=== PATIENT | male | born 1980 | race Caucasian/White ===

== ENCOUNTER 2017-01-09 15:00 | Emergency (ER) | payer OTHER ==
[~2017-01-09] VITALS: Ht 180.3 cm; Wt 100.0 kg
[2017-01-09 15:02] VITALS: TEMP 36.6; Ht 180.3 cm; Wt 100.0 kg
[2017-01-09] MEDS ORDERED: ONDANSETRON INJ 2 MG/ML 2 ML VIAL IV STA (15:14)
[2017-01-09] MEDS ORDERED: KETOROLAC TROMETHAMINE 30 MG/ML VIAL IV STA (15:14)
[2017-01-09] MEDS ORDERED: HYDROmorphone INJ 1 MG/ML SYR IV STA (15:14)
[2017-01-09 15:24] LABS: BASO % 0.3 %; BASO ABS # 0.06 K/uL (0-0.2); COMPLETE YES; EOS % 0.4 %; IG% 0.3 %; LYMPH % 11.1 %; LYMPH ABS # 2.13 K/uL (1.2-3.4); MEAN CELL VOLUME 88.8 fL (80-100); MEAN CORPUSCULAR HEMOGLOBIN 29.6 pg (25-34); MEAN CORPUSCULAR HGB CONC 33.3 g/dl (32-36); MEAN PLATELET VOLUME 10.2 fL (7.4-10.4); MONO % 6.6 %; NEUT % 81.3 %; PLATELET COUNT 276 K/uL (130-400); RED BLOOD COUNT 5.07 M/uL (4.7-6.1); WHITE BLOOD COUNT 19.25 K/uL (4.8-10.8)
[2017-01-09 15:46] LABS: CALCIUM 9.2 mg/dl (8.5-10.1); CREATININE 1.5 mg/dl (0.60-1.40); POTASSIUM 3.5 mmol/L (3.5-5.1)
[2017-01-09] MEDS ORDERED: HYDROmorphone INJ 0.5 MG/0.5 ML SYR IV STA (16:47)
[2017-01-09 17:12] LABS: URINE APPEARANCE CLEAR (CLEAR); URINE BILIRUBIN NEG (NEG); URINE COLOR DK YELLOW; URINE EPITHELIAL CELL AUTO >30 /lpf (0-5); URINE NITRITE NEG (NEG); URINE PH >= 9.0 (4.5-7.5); URINE SPECIFIC GRAVITY 1.031 (1.000-1.030); UROBILINOGEN NEG (NEG); ZZUR CULT IF INDIC CLEAN CATCH NO
[2017-01-09 17:17] LABS: MANUAL MICROSCOPIC REQUIRED? NO; REVIEW REQ? YES
[2017-01-09 17:18] LABS: SULFASALICYLIC ACID POS (NEG)
--- NOTE | 2017-01-09 19:00 | DIAGNOSTIC IMAGING REPORT ---
ABDOMEN AND PELVIS CT WITHOUT CONTRAST CT DOSE: 349.40 mGy.cm HISTORY: Left flank pain. TECHNIQUE: Multiaxial CT images of the abdomen and pelvis were performed without contrast. COMPARISON STUDY: None. FINDINGS: The lung bases are clear. No fractures within the visualized osseous structures. The unenhanced liver, spleen, adrenal glands, pancreas, and gallbladder are unremarkable. No retroperitoneal lymphadenopathy. Normal bladder. No bowel wall thickening or obstruction. Normal appendix. There are few punctate bilateral renal calculi. Mild left hydronephrosis. There are 2 obstructing stones within the left ureter. There is a 5 mm stone within the distal left ureter at the level of the iliac vessels on image 341. There is also a 3 mm stone within the distal left ureter on image 383 proximal to the left ureterovesical junction. IMPRESSION: 1. There are 2 obstructing stones within the distal left ureter as described above resulting in mild left hydronephrosis. 2. Bilateral nephrolithiasis. Electronically signed by: Luis Silva M.D. 01/09/2017 6:59 PM Dictated Date/Time: 01/09/2017 6:52 PM
[2017-01-09] MEDS ORDERED: TAMS0.4C38 PO (19:25)
[2017-01-09] MEDS ORDERED: OXYC1TAB3 PO (19:25)
[2017-01-09] MEDS ORDERED: ONDA4TAB46 PO (19:34)
[2017-01-09] MEDS ORDERED: MoRPHine SULFATE 4 MG/ML 1 ML CARP\\VIAL IV STA (19:34)
[2017-01-09] MEDS ORDERED: OXYCODONE IR HOME PACK PO ONE (19:45)
[2017-01-09 19:59] VITALS: BP 144/86; PULSE 68; O2SAT 98
--- NOTE | 2017-01-09 21:51 | EMERGENCY ROOM VISIT NOTE ---
History Report prepared by Mary Jo: David Jacobs Under the Supervision of: Dr. Rich Vang D.O. First contact with patient: 15:08 Chief Complaint: FLANK PAIN Stated Complaint: ABD PAIN History of Present Illness The patient is a 36 year old male who presents to the Emergency Room with complaints of constant left flank pain beginning 1 hour ago. Per , the patient's pain began suddenly. The patient states that his pain is moving into his abdomen. He also complains of chills, and vomiting. He states "I am freezing ". Pt denies headache, change in vision, numbness, weakness, fevers, chest pain , shortness of breath, diarrhea, pain with urination, and melena. He has no history of kidney stone. Patient has never had pain like this before in the past. Source of History: patient, spouse/significant other () Onset: 1 hour ago Position: other (left flank) Timing: constant Associated Symptoms: + abdominal pain, + chills, + vomiting, No SOB, No chest pain, No diarrhea, No fevers, No numbness, No urinary symptoms, No weakness Review of Systems See HPI for pertinent positives & negatives. A total of 10 systems reviewed and were otherwise negative. Past Medical & Surgical Medical Problems: (1) Ankle pain (2) Club foot of both lower extremities (3) No Known Active Medical Problems Family History Diabetes mellitus Hypertension Social History Smoking Status: Never Smoker Marital Status: Housing Status: lives with family Occupation Status: employed Current/Historical Medications Scheduled Tamsulosin Hcl (Flomax), 0.4 MG PO DAILY Scheduled PRN Ondansetron Hcl (Zofran), 4 MG PO TID PRN for Nausea Oxycodone Immediate Rel Tab (Roxicodone Ir), 1-2 TAB PO Q4H PRN for Severe Pain Allergies Coded Allergies: No Known Allergies (Unverified , 07/23/15) Physical Exam Vital Signs Date Time Temp Pulse Resp B/P Pulse Ox O2 Delivery O2 Flow Rate FiO2 01/09/17 19:59 68 18 144/86 98 01/09/17 19:02 75 18 149/83 99 Room Air 01/09/17 18:02 76 15 136/78 99 Room Air 01/09/17 17:01 71 17 119/77 100 Room Air 01/09/17 15:02 36.6 90 28 157/99 99 Room Air Physical Exam GENERAL: Laying in bed, intermittent dry heaving, severe distress, bilateral shaking of the legs. EYE EXAM: normal conjunctiva OROPHARYNX: no exudate, no erythema, lips, buccal mucosa, and tongue normal and mucous membranes are moist NECK: supple, no nuchal rigidity, no adenopathy, non-tender LUNGS: Clear to auscultation. Normal chest wall mechanics HEART: no murmurs, S1 normal and S2 normal ABDOMEN: abdomen soft, normo-active bowel sounds, no masses, no rebound or guarding. Reproducible tenderness over the left flank into the left abdomen. BACK: Back is symmetrical on inspection and there is no deformity, no midline tenderness, no CVA tenderness. SKIN: no rashes and no bruising UPPER EXTREMITIES: upper extremities are grossly normal. LOWER EXTREMITIES: No pitting edema. NEURO EXAM: Normal sensorium, cranial nerves II-XII grossly intact, normal speech, no gross weakness of arms, no gross weakness of legs. Medical Decision & Procedures ER Provider Diagnostic Interpretation: CT:Per my review, radiologist interpretation. ABDOMEN AND PELVIS CT WITHOUT CONTRAST FINDINGS: The lung bases are clear. No fractures within the visualized osseous structures. The unenhanced liver, spleen, adrenal glands, pancreas, and gallbladder are unremarkable. No retroperitoneal lymphadenopathy. Normal bladder. No bowel wall thickening or obstruction. Normal appendix. There are few punctate bilateral renal calculi. Mild left hydronephrosis. There are 2 obstructing stones within the left ureter. There is a 5 mm stone within the distal left ureter at the level of the iliac vessels on image 341. There is also a 3 mm stone within the distal left ureter on image 383 proximal to the left ureterovesical junction. IMPRESSION: 1. There are 2 obstructing stones within the distal left ureter as described above resulting in mild left hydronephrosis. 2. Bilateral nephrolithiasis. Electronically signed by: Luis Silva M.D. Laboratory Results 01/09/17 15:10 Red Blood Count 5.07, Mean Corpuscular Volume 88.8, Mean Corpuscular Hemoglobin 29.6, Mean Corpuscular Hemoglobin Concent 33.3, Mean Platelet Volume 10.2, Neutrophils (%) (Auto) 81.3, Lymphocytes (%) (Auto) 11.1, Monocytes (%) (Auto) 6.6, Eosinophils (%) (Auto) 0.4, Basophils (%) (Auto) 0.3, Neutrophils # (Auto) 15.65, Lymphocytes # (Auto) 2.13, Monocytes # (Auto) 1.28, Eosinophils # (Auto) 0.07, Basophils # (Auto) 0.06 01/09/17 15:10 Test 01/09/17 15:10 01/09/17 17:00 White Blood Count 19.25 K/uL (4.8-10.8) Red Blood Count 5.07 M/uL (4.7-6.1) Hemoglobin 15.0 g/dL (14.0-18.0) Hematocrit 45.0 % (42-52) Mean Corpuscular Volume 88.8 fL (80-100) Mean Corpuscular Hemoglobin 29.6 pg (25-34) Mean Corpuscular Hemoglobin Concent 33.3 g/dl (32-36) Platelet Count 276 K/uL (130-400) Mean Platelet Volume 10.2 fL (7.4-10.4) Neutrophils (%) (Auto) 81.3 % Lymphocytes (%) (Auto) 11.1 % Monocytes (%) (Auto) 6.6 % Eosinophils (%) (Auto) 0.4 % Basophils (%) (Auto) 0.3 % Neutrophils # (Auto) 15.65 K/uL (1.4-6.5) Lymphocytes # (Auto) 2.13 K/uL (1.2-3.4) Monocytes # (Auto) 1.28 K/uL (0.11-0.59) Eosinophils # (Auto) 0.07 K/uL (0-0.5) Basophils # (Auto) 0.06 K/uL (0-0.2) RDW Standard Deviation 40.7 fL (36.4-46.3) RDW Coefficient of Variation 12.6 % (11.5-14.5) Immature Granulocyte % (Auto) 0.3 % Immature Granulocyte # (Auto) 0.06 K/uL (0.00-0.02) Anion Gap 11.0 mmol/L (3-11) Est Creatinine Clear Calc Drug Dose 82.8 ml/min Estimated GFR () 68.9 Estimated GFR (Non- 59.5 BUN/Creatinine Ratio 8.0 (10-20) Calcium Level 9.2 mg/dl (8.5-10.1) Total Bilirubin 0.6 mg/dl (0.2-1) Direct Bilirubin 0.1 mg/dl (0-0.2) Aspartate Amino Transf (AST/SGOT) 19 U/L (15-37) Alanine Aminotransferase (ALT/SGPT) 34 U/L (12-78) Alkaline Phosphatase 88 U/L (45-117) Total Protein 8.1 gm/dl (6.4-8.2) Albumin 4.3 gm/dl (3.4-5.0) Lipase 103 U/L (73-393) Urine Color DK YELLOW Urine Appearance CLEAR (CLEAR) Urine pH >= 9.0 (4.5-7.5) Urine Specific [place] 1.031 (1.000-1.030) Urine Protein 2+ (NEG) Urine Glucose (UA) NEG (NEG) Urine Ketones 1+ (NEG) Urine Occult Blood NEG (NEG) Urine Nitrite NEG (NEG) Urine Bilirubin NEG (NEG) Urine Urobilinogen NEG (NEG) Urine Leukocyte Esterase NEG (NEG) Urine WBC (Auto) 1-5 /hpf (0-5) Urine RBC (Auto) 0-4 /hpf (0-4) Urine Hyaline Casts (Auto) /lpf (0-5) Urine Epithelial Cells (Auto) >30 /lpf (0-5) Urine Bacteria (Auto) NEG (NEG) Urine Renal Epithelial Cells /lpf (0-5) Urine Pathogenic Casts /lpf (0) Urine Yeast (Auto) (NONE PRSENT) Laboratory results per my review. Medications Administered Medications (Trade) Dose Ordered Sig/Tiana Route Start Time Stop Time Status Last Admin Dose Admin Hydromorphone HCl (Dilaudid Inj) 1 mg NOW STAT IV 01/09/17 15:14 01/09/17 15:15 DC 01/09/17 15:24 10 MG Ondansetron HCl (Zofran Inj) 4 mg NOW STAT IV 01/09/17 15:14 01/09/17 15:15 DC 01/09/17 15:24 4 MG Ketorolac Tromethamine (Toradol Inj) 30 mg NOW STAT IV 01/09/17 15:14 01/09/17 15:15 DC 01/09/17 15:25 30 MG Hydromorphone HCl (Dilaudid Inj) 0.5 mg NOW STAT IV 01/09/17 16:47 01/09/17 16:48 DC 01/09/17 16:58 0.5 MG Morphine Sulfate (MoRPHine SULFATE INJ) 4 mg NOW STAT IV 01/09/17 19:34 01/09/17 19:35 DC 01/09/17 19:34 4 MG Oxycodone HCl (Roxicodone Immediate Rel 5MG Home Pack) 1 homepack UD ONCE PO 01/09/17 19:45 01/09/17 19:46 DC 01/09/17 19:44 1 HOMEPACK ED Course ED COURSE: Vital signs were reviewed and showed tachypneic The patients medical record was reviewed The above diagnostic studies were performed and reviewed. ED treatments and interventions as stated above. 1509: The patient was evaluated in room C10. A complete history and physical examination was performed. 1514: Ordered Toradol Inj 30 mg IV, Dilaudid Inj 1 mg IV. 1645: I reassessed the patient. He is still in pain. He gave a urine sample. Ordered Dilaudid Inj 0.5 mg IV. 1933: Ordered Morphine Sulfate 4 mg IV. 1944: Ordered Roxicodone Immediate Rel 5 mg home pack PO. 1950: Upon reevaluation, the patient is resting comfortably. I discussed my findings with the patient and he understands and agrees with the treatment plan. Based on the patients age, coexisting illnesses, exam and lab findings the decision to treat as an outpatient was made. The patient remained stable while under my care. The patient appeared well at the time of discharge. Medical Decision Differential diagnoses includes but is not limited to gastritis, peptic ulcer disease, GERD, gallbladder disease, pancreatitis, small bowel obstruction, acute coronary syndrome, pericarditis, ischemic bowel, irritable bowel disease, irritable bowel syndrome, appendicitis, diverticulitis, malignancy, hernia, urinary tract infection, torsion, perforation, trauma, infectious. Patient is a 36-year-old male who presents the ER for severe left flank pain started one hour prior to arrival so she with nausea and vomiting. He has never had this before. On exam patient is in significant distress unable to give comfortable crying. Labs show a leukocytosis of 19,000 which I feels likely stress reactive associated with BMP which is unremarkable along with LFTs , bilirubin and lipase. UA shows no signs of infection. CT noncontrast shows 2 obstructing stones within the distal left ureter one of which is 5 mm and the other is 3 mm at the UVJ. Patient was given 2 rounds soft WITH resolution of his pain. He is given a bolus normal saline and Toradol. He was significant improved. Patient was updated at bedside on 2 separate occasions and discharged with OxyIR/Flomax and instructed to follow up with urology. Discussed with Pt concerning signs and symptoms to watch out for. Pt was instructed to follow up with their PCP and discussed with the patient their option to return to the ED at anytime for persistent or worsening symptoms. The appropriate anticipatory guidance and out-patient management, including indications for return to the emergency department, were explained at length to the patient and understood. Impression Primary Impression: Renal colic on left side Scribe Attestation The scribe's documentation has been prepared under my direction and personally reviewed by me in its entirety. I confirm that the note above accurately reflects all work, treatment, procedures, and medical decision making performed by me. Departure Information Dispostion Home / Self-Care Prescriptions Ondansetron Hcl (ZOFRAN) 4 Mg Tab 4 MG PO TID Y for Nausea, #20 TAB Prov: Rich Vang, DO 01/09/17 Tamsulosin Hcl (FLOMAX) 0.4 Mg Cap 0.4 MG PO DAILY, #10 CAP Prov: Rich Vang, DO 01/09/17 Oxycodone Immediate Rel Tab (ROXICODONE IR) 5 Mg Tab 1-2 TAB PO Q4H Y for Severe Pain, #24 TAB Prov: Rich Vang, DO 01/09/17 Referrals No Doctor, Assigned (PCP) Forms HOME CARE DOCUMENTATION FORM, IMPORTANT VISIT INFORMATION Patient Instructions ED Stone Renal W Colic, [facility] Additional Instructions Please follow up with your primary care doctor with in the next 24 hours. Any worsening of your symptoms, please return to the ED immediately. This fevers greater than 100.4, persistent nausea vomiting, worsening pain, passing out, or any other concerning signs or symptoms from your standpoint. Please follow up with urology within 1 week. You were given medications during this visit that will inhibit your ability to drive, operate machinery and work. Please do NOT drive, operate machinery or work for the next 12hrs. You were also given a prescription for a narcotic. While taking this medication you should also not drive, operate machinery and or work.
== END 2017-01-09 20:01 | disposition home or self-care (01) ==
LOC: C.EDB 15:01 → C.EDC 20:01
DX: N23 Unspecified renal colic (principal); Z83.3 Family history of diabetes mellitus; Z82.49 Family history of ischemic heart disease and other diseases of the circulatory system

== ENCOUNTER 2017-01-13 13:21 | Inpatient (IN) | payer OTHER ==
[~2017-01-13] VITALS: Ht 177.8 cm; Wt 88.9 kg
[~2017-01-13 13:21] MED LIST: ONDA4TAB46 PO; OXYC1TAB3 PO; TAMS0.4C38 PO
[2017-01-13] MEDS ORDERED: SODIUM CHLORIDE 0.9% 1000ML 1,000 ML IV STA (13:53)
[2017-01-13] MEDS ORDERED: KETOROLAC TROMETHAMINE 30 MG/ML VIAL IV STA (13:53)
--- NOTE | 2017-01-13 13:58 | EMERGENCY ROOM VISIT NOTE ---
History First contact with patient: 13:44 Chief Complaint: KIDNEY STONE Stated Complaint: KIDNEY STONES History of Present Illness The patient is a 36 year old male who presents to the Emergency Room via private vehicle accompanied by female with complaints of "kidney stones". The patient states that Tuesday afternoon, around lunch time he went to use the restroom when he developed left flank pain and collapsed the floor secondary to the pain. He rates the pain is a 6-7/10. He states that he was seen here recently in the emergency department where a CT scan was performed and found to obstructing stones. He states that he has been trying to use the Zofran, Flomax and oxycodone immediate release at home but the pain continues. He denies any prior history of kidney stones prior to the recent diagnosis. He states that he last took the oxycodone immediate release at 4 AM and then 10 AM today. He has been urinating. He denies any chest pain, shortness of breath, fevers, chills, established urologist. Review of Systems A complete 10-point Review of Systems was discussed with the patient, with pertinent positives and negatives listed in the History of Present Illness. All remaining Review of Systems questions can be considered negative unless otherwise specified. Past Medical/Surgical History Medical Problems: (1) Ankle pain (2) Club foot of both lower extremities (3) No Known Active Medical Problems Family History Diabetes mellitus Hypertension Social History Smoking Status: Current Every Day Smoker Marital Status: Housing Status: lives with family Occupation Status: employed Current/Historical Medications No Active Prescriptions or Reported Meds Allergies Coded Allergies: No Known Allergies (Unverified , 07/23/15) Physical Exam Vital Signs Date Time Temp Pulse Resp B/P Pulse Ox O2 Delivery O2 Flow Rate FiO2 01/13/17 15:14 57 18 128/61 99 Room Air 01/13/17 13:30 36.9 75 18 147/93 99 Room Air Physical Exam VITAL SIGNS - Vital signs and nursing notes were reviewed. Patient is afebrile , hypertensive at 147/93, nontoxic tachycardic and is saturating well on room air 99%. GENERAL -36-year-old male appearing his stated age who is in no acute distress. Communicates well with provider and answers questions appropriately. SKIN - Without rashes. No petechial rashes. HEAD - NC/AT. LUNGS - Chest wall symmetric without accessory muscle use, intercostals retractions, or central cyanosis. Normal vesicular breath sounds CTA B/L. No wheezes, rales, or rhonchi appreciated. CARDIAC - RRR with S1/S2. No murmur, rubs, or gallops appreciated. ABDOMEN - Abdominal contour without pulsations or visible masses. BS normoactive all four quadrants. There is generalized abdominal tenderness favoring the left side radiating to the left flank. No palpable masses, hepatosplenomegaly, or ascites noted. Positive CVA tenderness on the left. EXTREMITIES - No clubbing or peripheral cyanosis. No pretibial edema present. + 5/5 strength noted in UE/LE bilaterally. NEUROLOGIC - Cranial nerves II through XII grossly intact. PSYCH - Pt is very pleasant and interacts well with examiner. Medical Decision & Procedures ER Provider Diagnostic Interpretation: RENAL ULTRASOUND HISTORY: Left flank pain. Renal colic, obstructing stones, continued pain COMPARISON: Abdomen and pelvis CT 01/09/2017. FINDINGS: Right kidney: 11.9 cm. No hydronephrosis. Normal corticomedullary differentiation and cortical thickness. Left kidney: 11.5 cm. Mild hydronephrosis, unchanged. Increased cortical echogenicity. Normal cortical thickness. Bladder: Decompressed and not well visualized. The ureteral jets are not identified. IMPRESSION: 1. Mild left hydronephrosis, unchanged. 2. Increased cortical echogenicity within the left kidney. This raises the possibility of superimposed pyelonephritis. Recommend correlation with urinalysis. 3. Normal right kidney. Electronically signed by: Luis Silva M.D. 01/13/2017 2:42 PM Dictated Date/Time: 01/13/2017 2:40 PM Laboratory Results 01/13/17 14:00 Red Blood Count 4.72, Mean Corpuscular Volume 87.5, Mean Corpuscular Hemoglobin 29.2, Mean Corpuscular Hemoglobin Concent 33.4, Mean Platelet Volume 10.3, Neutrophils (%) (Auto) 73.5, Lymphocytes (%) (Auto) 13.3, Monocytes (%) (Auto) 10.7, Eosinophils (%) (Auto) 1.6, Basophils (%) (Auto) 0.6, Neutrophils # (Auto ) 8.48, Lymphocytes # (Auto) 1.53, Monocytes # (Auto) 1.23, Eosinophils # (Auto ) 0.18, Basophils # (Auto) 0.07 01/13/17 14:00 Test 01/13/17 13:45 01/13/17 14:00 Urine Color DK YELLOW Urine Appearance CLEAR (CLEAR) Urine pH 6.0 (4.5-7.5) Urine Specific [place] 1.025 (1.000-1.030) Urine Protein 1+ (NEG) Urine Glucose (UA) NEG (NEG) Urine Ketones 3+ (NEG) Urine Occult Blood 3+ (NEG) Urine Nitrite NEG (NEG) Urine Bilirubin 1+ (NEG) Urine Urobilinogen NEG (NEG) Urine Leukocyte Esterase NEG (NEG) Urine WBC (Auto) 1-5 /hpf (0-5) Urine RBC (Auto) >30 /hpf (0-4) Urine Hyaline Casts (Auto) 1-5 /lpf (0-5) Urine Epithelial Cells (Auto) 10-20 /lpf (0-5) Urine Bacteria (Auto) 1+ (NEG) Urine Mucus PRESENT (NONE PRSENT) Urine Yeast (Auto) (NONE PRSENT) White Blood Count 11.52 K/uL (4.8-10.8) Red Blood Count 4.72 M/uL (4.7-6.1) Hemoglobin 13.8 g/dL (14.0-18.0) Hematocrit 41.3 % (42-52) Mean Corpuscular Volume 87.5 fL (80-100) Mean Corpuscular Hemoglobin 29.2 pg (25-34) Mean Corpuscular Hemoglobin Concent 33.4 g/dl (32-36) Platelet Count 242 K/uL (130-400) Mean Platelet Volume 10.3 fL (7.4-10.4) Neutrophils (%) (Auto) 73.5 % Lymphocytes (%) (Auto) 13.3 % Monocytes (%) (Auto) 10.7 % Eosinophils (%) (Auto) 1.6 % Basophils (%) (Auto) 0.6 % Neutrophils # (Auto) 8.48 K/uL (1.4-6.5) Lymphocytes # (Auto) 1.53 K/uL (1.2-3.4) Monocytes # (Auto) 1.23 K/uL (0.11-0.59) Eosinophils # (Auto) 0.18 K/uL (0-0.5) Basophils # (Auto) 0.07 K/uL (0-0.2) RDW Standard Deviation 39.0 fL (36.4-46.3) RDW Coefficient of Variation 12.1 % (11.5-14.5) Immature Granulocyte % (Auto) 0.3 % Immature Granulocyte # (Auto) 0.03 K/uL (0.00-0.02) Anion Gap 7.0 mmol/L (3-11) Est Creatinine Clear Calc Drug Dose 64.3 ml/min Estimated GFR () 55.3 Estimated GFR (Non- 47.7 BUN/Creatinine Ratio 8.4 (10-20) Calcium Level 9.4 mg/dl (8.5-10.1) Medications Administered Medications (Trade) Dose Ordered Sig/Tiana Route Start Time Stop Time Status Last Admin Dose Admin Sodium Chloride (Nss 1000ml) 1,000 ml @ 999 mls/hr Q1H1M STAT IV 01/13/17 13:53 01/13/17 14:53 DC 01/13/17 14:07 999 MLS/HR Ketorolac Tromethamine (Toradol Inj) 30 mg NOW STAT IV 01/13/17 13:53 01/13/17 13:55 DC 01/13/17 14:15 30 MG Medical Decision Patient was seen and evaluated as above. After obtaining a thorough history and physical examination IV access was initiated and the above workup was performed. Previous visit was thoroughly reviewed. Patient was diagnosed with 2 obstructing renal calculi. Creatinine at that time was 1.2. She presents today trying the outpatient Flomax, OxyIR and Zofran with minimal relief. Pain is been continued. Leukocytosis has decreased to 11.52. Hemoglobin 13.8. PRP with creatinine of 1.8. This is an interval elevation. Urine shows 3+ ketones , 3+ occult blood, greater than 30 red blood cells, 10-20 epithelial cells, 1+ urine bacteria and urine mucus. I do not want to really radiate the individual with a CT scan, therefore ultrasound was pursued. Ultrasound reveals mild hydronephrosis of the left, and concern for potential pyelonephritis. When comparing this to his urine today he now has 3+ occult blood and 1+ bacteria. Urine mucus is also present. At this time I do believe is reasonable to discuss the case with on-call urology. I spoke with Jaycee Loving, at 3:20 PM regarding the patient's urologic case. At this time it appears that the patient may warrant hospital admission for pain control, and potential follow up with urology in the inpatient setting. I do believe this is reasonable as the patient has tried the outpatient route and has not done well with controlling pain. At this time I spoke with my attending as well as the on- call hospitalist regarding the patient's potential stay. Patient verbalizes he would prefer to stay in the hospital versus another outpatient route. He was also identified that the patient would likely not be able to be seen by urology until next week in the outpatient setting. I do believe he is stable at this time for admission for pain control regarding his renal calculi. I spoke with the hospitalist regarding his case, please refer to further documentation regarding his stay. He was hydrated with a liter of normal saline, and provided with 30 mg of Toradol, prior to identifying his interval elevation of creatinine. This provided great pain relief. In evaluation treatment this patient following differential diagnoses were entertained: Pyelonephritis, renal calculi, acute kidney injury, among others. Impression Primary Impression: Renal colic on left side Additional Impression: Anemia Departure Information Dispostion Admitted as an inpatient Condition FAIR Prescriptions No Active Prescriptions or Reported Meds Referrals No Doctor, Assigned (PCP) Patient Instructions [facility] Problem Qualifiers
[2017-01-13 14:17] LABS: BASO % 0.6 %; BASO ABS # 0.07 K/uL (0-0.2); COMPLETE YES; EOS % 1.6 %; HEMATOCRIT 41.3 % (42-52); IG% 0.3 %; LYMPH % 13.3 %; LYMPH ABS # 1.53 K/uL (1.2-3.4); MEAN CELL VOLUME 87.5 fL (80-100); MEAN CORPUSCULAR HEMOGLOBIN 29.2 pg (25-34); MEAN CORPUSCULAR HGB CONC 33.4 g/dl (32-36); MEAN PLATELET VOLUME 10.3 fL (7.4-10.4); MONO % 10.7 %; NEUT % 73.5 %; PLATELET COUNT 242 K/uL (130-400); RED BLOOD COUNT 4.72 M/uL (4.7-6.1); WHITE BLOOD COUNT 11.52 K/uL (4.8-10.8)
[2017-01-13 14:29] LABS: URINE APPEARANCE CLEAR (CLEAR); URINE COLOR DK YELLOW; URINE NITRITE NEG (NEG); URINE SPECIFIC GRAVITY 1.025 (1.000-1.030); UROBILINOGEN NEG (NEG); ZZUR CULT IF INDIC CLEAN CATCH YES
[2017-01-13 14:31] LABS: BUN/CREATININE RATIO 8.4 (10-20); CALCIUM 9.4 mg/dl (8.5-10.1); CREATININE 1.8 mg/dl (0.60-1.40)
[2017-01-13 14:38] LABS: MANUAL MICROSCOPIC REQUIRED? NO; REVIEW REQ? YES; URINE BILIRUBIN 1+ (NEG)
[2017-01-13 14:40] LABS: URINE MUCUS PRESENT (NONE PRSENT)
--- NOTE | 2017-01-13 14:43 | DIAGNOSTIC IMAGING REPORT ---
RENAL ULTRASOUND HISTORY: Left flank pain. Renal colic, obstructing stones, continued pain COMPARISON: Abdomen and pelvis CT 01/09/2017. FINDINGS: Right kidney: 11.9 cm. No hydronephrosis. Normal corticomedullary differentiation and cortical thickness. Left kidney: 11.5 cm. Mild hydronephrosis, unchanged. Increased cortical echogenicity. Normal cortical thickness. Bladder: Decompressed and not well visualized. The ureteral jets are not identified. IMPRESSION: 1. Mild left hydronephrosis, unchanged. 2. Increased cortical echogenicity within the left kidney. This raises the possibility of superimposed pyelonephritis. Recommend correlation with urinalysis. 3. Normal right kidney. Electronically signed by: Luis Silva M.D. 01/13/2017 2:42 PM Dictated Date/Time: 01/13/2017 2:40 PM
[2017-01-13] MEDS ORDERED: MoRPHine SULFATE 2 MG/ML CARP IV PRN (17:15)
[2017-01-13] MEDS ORDERED: ONDANSETRON INJ 2 MG/ML 2 ML VIAL IV PRN (17:15)
[2017-01-13] MEDS ORDERED: MAGNESIUM HYDROXIDE SUSP 30 ML UDC PO PRN (17:15)
[2017-01-13] MEDS ORDERED: ACETAMINOPHEN 325 MG TAB PO PRN (17:15)
--- NOTE | 2017-01-13 17:23 | History and Physical ---
History & Physical Date & Time of Service: January 13, 2017 at 17:14 Chief Complaint: Kidney Stones Primary Care Physician: No Doctor, Assigned History of Present Illness Source: patient, family 36 y/o M c/o L flank/abd pain. Pt states he started having L flank pain only on Tuesday. He was seen in the ED and found to have an obstructing renal stone. He was given flomax and d/c'd to home. Since that time, he has not taken much PO. He was having n/v Tuesday and Tuesday, now mostly just no appetite. He has eaten an apple over the last few days. Pain is now his L flank and moving into the L side of his abd. He has also started having burning with urination. He has not noted blood in his urine. Pt denies fever, SOB, chest pain, c/d, LE pain or swelling. ROS as noted above, otherwise neg. Pt has never had pain like this prior. No hx of renal stones. Past Medical/Surgical History Medical Problems: (1) Ankle pain Status: Resolved (2) Club foot of both lower extremities Status: Resolved Family History Family history was reviewed; no changes noted. Maternal uncle with hx of stones Paternal hx unknown Social History Smoking Status: Current Every Day Smoker (1pack Q2days) Alcohol Use: none Drug Use: none Marital Status: Occupational Status: employed Multi-Drug Resistant Organisms History of MDRO: No Allergies Coded Allergies: No Known Allergies (Unverified , 07/23/15) Home Medications No Active Prescriptions or Reported Meds Physical Exam Vital Signs Date Time Temp Pulse Resp B/P Pulse Ox O2 Delivery O2 Flow Rate FiO2 01/13/17 15:14 57 18 128/61 99 Room Air 01/13/17 13:30 36.9 75 18 147/93 99 Room Air General Appearance: WD/WN, no apparent distress Head: normocephalic, atraumatic Respiratory/Chest: normal breath sounds, no respiratory distress Cardiovascular: regular rate, rhythm, no edema Abdomen/GI: soft, + tenderness (L lateral abd) Back: + left CVA tenderness Extremities/Musculoskelatal: no calf tenderness, no pedal edema Neurologic/Psych: alert, normal mood/affect, oriented x 3 Skin: normal color, warm/dry Diagnostics Laboratory Results Results Past 24 Hours Test 01/13/17 13:45 01/13/17 14:00 Range/Units Urine Color DK YELLOW Urine Appearance CLEAR CLEAR Urine pH 6.0 4.5-7.5 Urine Specific [place] 1.025 1.000-1.030 Urine Protein 1+ NEG Urine Glucose (UA) NEG NEG Urine Ketones 3+ NEG Urine Occult Blood 3+ NEG Urine Nitrite NEG NEG Urine Bilirubin 1+ NEG Urine Urobilinogen NEG NEG Urine Leukocyte Esterase NEG NEG Urine WBC (Auto) 1-5 0-5 /hpf Urine RBC (Auto) >30 0-4 /hpf Urine Hyaline Casts (Auto) 1-5 0-5 /lpf Urine Epithelial Cells (Auto) 10-20 0-5 /lpf Urine Bacteria (Auto) 1+ NEG Urine Mucus PRESENT NONE PRSENT Urine Yeast (Auto) NONE PRSENT White Blood Count 11.52 4.8-10.8 K/uL Red Blood Count 4.72 4.7-6.1 M/uL Hemoglobin 13.8 14.0-18.0 g/dL Hematocrit 41.3 42-52 % Mean Corpuscular Volume 87.5 80-100 fL Mean Corpuscular Hemoglobin 29.2 25-34 pg Mean Corpuscular Hemoglobin Concent 33.4 32-36 g/dl Platelet Count 242 130-400 K/uL Mean Platelet Volume 10.3 7.4-10.4 fL Neutrophils (%) (Auto) 73.5 % Lymphocytes (%) (Auto) 13.3 % Monocytes (%) (Auto) 10.7 % Eosinophils (%) (Auto) 1.6 % Basophils (%) (Auto) 0.6 % Neutrophils # (Auto) 8.48 1.4-6.5 K/uL Lymphocytes # (Auto) 1.53 1.2-3.4 K/uL Monocytes # (Auto) 1.23 0.11-0.59 K/uL Eosinophils # (Auto) 0.18 0-0.5 K/uL Basophils # (Auto) 0.07 0-0.2 K/uL RDW Standard Deviation 39.0 36.4-46.3 fL RDW Coefficient of Variation 12.1 11.5-14.5 % Immature Granulocyte % (Auto) 0.3 % Immature Granulocyte # (Auto) 0.03 0.00-0.02 K/uL Sodium Level 136 136-145 mmol/L Potassium Level 4.0 3.5-5.1 mmol/L Chloride Level 100 98-107 mmol/L Carbon Dioxide Level 29 21-32 mmol/L Anion Gap 7.0 3-11 mmol/L Blood Urea Nitrogen 15 7-18 mg/dl Creatinine 1.80 0.60-1.40 mg/dl Est Creatinine Clear Calc Drug Dose 64.3 ml/min Estimated GFR () 55.3 Estimated GFR (Non- 47.7 BUN/Creatinine Ratio 8.4 10-20 Random Glucose 95 70-99 mg/dl Calcium Level 9.4 8.5-10.1 mg/dl Microbiology Results 01/13/17 Urine Culture, Received Pending Diagnostic Radiology Renal US: 1. Mild left hydronephrosis, unchanged. 2. Increased cortical echogenicity within the left kidney. This raises the possibility of superimposed pyelonephritis. Recommend correlation with urinalysis. 3. Normal right kidney. CT AP done 01/09/17: 1. There are 2 obstructing stones within the distal left ureter as described above resulting in mild left hydronephrosis. 2. Bilateral nephrolithiasis Impression Assessment and Plan 36 y/o who was admitted on 01/13 with L sided renal stones Renal stones: obstructing stones noted on CTAP 01/09 US today does not show stones, possible pyelo UA + for blood, neg for leuk est and nitrites--will hold on abx given UA results unless urine cx is + IVF May need t/c repeat CT AP if no improvement Flomax, pain meds Urology c/s pending Nicotine abuse: Pt declines nicotine patch, ordered PRN Level of Care Med/Surg VTE Prophylaxis VTE Risk Assessment Done? Y/N: Yes Risk Level: Low
[2017-01-13] MEDS ORDERED: NICOTINE 21 MG/24 HR TDSY TD PRN (17:30)
[2017-01-13] MEDS: OXYCODONE/ACETAMINOPHEN 5-325 TAB PO PRN (19:56)
[2017-01-13 20:00] VITALS: BP 138/88; PULSE 61; TEMP 36.9; O2SAT 97; Ht 177.8 cm; Wt 88.9 kg
[2017-01-13] MEDS: SODIUM CHLORIDE 0.9% 1000ML 1,000 ML IV SCH (20:00)
--- NOTE | 2017-01-13 21:36 | DIAGNOSTIC IMAGING REPORT ---
KUB CLINICAL HISTORY: ureteral stone COMPARISON STUDY: CT 01/09/2017 FINDINGS: Probable distal left ureteral calculus at the ureterovesical junction. No additional calcifications are identified. Bowel pattern is nonobstructive. IMPRESSION: Single calcification overlying the distal left ureter proximal to the left ureteral vesicle junction. Electronically signed by: Sandro Kingsley M.D. 01/13/2017 9:35 PM Dictated Date/Time: 01/13/2017 9:34 PM
[2017-01-13] MEDS: TAMSULOSIN HCL 0.4 MG CAP PO SCH (22:05)
[2017-01-13 23:49] VITALS: BP 135/77; PULSE 64; TEMP 36.8; O2SAT 99
[2017-01-14] MEDS: SODIUM CHLORIDE 0.9% 1000ML 1,000 ML IV SCH ×4 (01:12→23:47)
[2017-01-14 07:51] VITALS: BP 126/72; PULSE 67; TEMP 36.7; O2SAT 98
[2017-01-14] MEDS: OXYCODONE/ACETAMINOPHEN 5-325 TAB PO PRN (08:02)
--- NOTE | 2017-01-14 10:08 | Consultant Recommendations ---
Tumbler Plater Recommendations Date of Service January 14, 2017. Tumbler Plater Recommendations Please get KUB xray prior to appt next week.
--- NOTE | 2017-01-14 10:08 | Urology Consultation ---
History General Date of Service: January 14, 2017. Primary Care Physician: No Doctor, Assigned Pt seen a urologist before?: No History of Present Illness 36 year old admitted for left ureteral stone. He had been having intermittent left sided pain since Tuesday. Was seen in [facility] ER on Tuesday. Reviewed chart- CT scan at that time showed 2 obstructing right ureteral stones measuring 5 mm at the iliac vessel and 3mm at the UVJ. Also note punctate bitateral stones. His recent KUB shows 1 UVJ stone- suspect this is the 5 mm stone and the 3 mm stone has passed. Renal u/s showed mild hydro. Pt reports he is unsure of passing any stones. His pain is currently controlled with oral pain meds. Denies nausea or bothersome urinary symptoms. Urine culture is pending. He has been NPO since midnight. White count is only slightly elevated 11.52 Creatinine elevated at 1.8 Afebrile. Slightly elevated BP. Imaging Imaging: CT, KUB, Ultrasound Laboratory Last 24 Hours Test 01/13/17 13:45 01/13/17 14:00 01/14/17 08:46 Urine Color DK YELLOW Urine Appearance CLEAR Urine pH 6.0 Urine Specific [place] 1.025 Urine Protein 1+ Urine Glucose (UA) NEG Urine Ketones 3+ Urine Occult Blood 3+ Urine Nitrite NEG Urine Bilirubin 1+ Urine Urobilinogen NEG Urine Leukocyte Esterase NEG Urine WBC (Auto) 1-5 /hpf Urine RBC (Auto) >30 /hpf Urine Hyaline Casts (Auto) 1-5 /lpf Urine Epithelial Cells (Auto) 10-20 /lpf Urine Bacteria (Auto) 1+ Urine Mucus PRESENT Urine Yeast (Auto) White Blood Count 11.52 K/uL Red Blood Count 4.72 M/uL Hemoglobin 13.8 g/dL Hematocrit 41.3 % Mean Corpuscular Volume 87.5 fL Mean Corpuscular Hemoglobin 29.2 pg Mean Corpuscular Hemoglobin Concent 33.4 g/dl Platelet Count 242 K/uL Mean Platelet Volume 10.3 fL Neutrophils (%) (Auto) 73.5 % Lymphocytes (%) (Auto) 13.3 % Monocytes (%) (Auto) 10.7 % Eosinophils (%) (Auto) 1.6 % Basophils (%) (Auto) 0.6 % Neutrophils # (Auto) 8.48 K/uL Lymphocytes # (Auto) 1.53 K/uL Monocytes # (Auto) 1.23 K/uL Eosinophils # (Auto) 0.18 K/uL Basophils # (Auto) 0.07 K/uL RDW Standard Deviation 39.0 fL RDW Coefficient of Variation 12.1 % Immature Granulocyte % (Auto) 0.3 % Immature Granulocyte # (Auto) 0.03 K/uL Sodium Level 136 mmol/L Potassium Level 4.0 mmol/L Chloride Level 100 mmol/L Carbon Dioxide Level 29 mmol/L Anion Gap 7.0 mmol/L Blood Urea Nitrogen 15 mg/dl Creatinine 1.80 mg/dl Est Creatinine Clear Calc Drug Dose 64.3 ml/min Estimated GFR () 55.3 Estimated GFR (Non- 47.7 BUN/Creatinine Ratio 8.4 Random Glucose 95 mg/dl Calcium Level 9.4 mg/dl Current Inpatient Medications Medications (Trade) Dose Ordered Sig/Tiana Route Start Time Stop Time Status Last Admin Dose Admin Acetaminophen (Tylenol Tab) 650 mg Q4H PRN PO 01/13/17 17:15 02/12/17 17:14 Magnesium Hydroxide (Milk Of Magnesia Susp) 30 ml Q6H PRN PO 01/13/17 17:15 02/12/17 17:14 Ondansetron HCl 4 mg 4 mg Q6H PRN IV 01/13/17 17:15 02/12/17 17:14 Sodium Chloride (Nss 1000ml) 1,000 ml @ 125 mls/hr Q8H IV 01/13/17 17:15 02/12/17 17:14 01/14/17 09:18 125 MLS/HR Morphine Sulfate (MoRPHine SULFATE INJ) 1 mg Q4H PRN IV 01/13/17 17:15 01/27/17 17:14 Oxycodone/ Acetaminophen (Percocet 5-325mg Tab) 1 tab Q4H PRN PO 01/13/17 17:15 01/27/17 17:14 01/14/17 08:02 1 TAB Tamsulosin HCl (Flomax Cap) 0.4 mg HS PO 01/13/17 21:00 02/12/17 20:59 01/13/17 22:05 0.4 MG Nicotine (Nicoderm Cq 21MG Patch) 1 patch QAM PRN TD 01/13/17 17:30 02/12/17 17:29 Labs were reviewed and are within normal limits unless listed below. Labs are available in the chart and at [facility] Problem List Medical Problems: (1) Anemia Status: Acute (2) Renal colic on left side Status: Acute (3) Renal colic on left side Status: Acute Past History other (club foot as child- resolved) Family History Diabetes mellitus Hypertension Social History Hx Tobacco Use In Past Year?: Yes Marital status: Occupation status: employed History of MDRO No Allergies Coded Allergies: No Known Allergies (Unverified , 07/23/15) Medications Home Medications: Home Meds and Scripts Medications Dose Route/Sig Max Daily Dose Days Date Category No Active Prescriptions or Reported Medications Rx Inpatient Medications: Current Inpatient Medications Medications (Trade) Dose Ordered Sig/Tiana Route Start Time Stop Time Status Last Admin Dose Admin Acetaminophen (Tylenol Tab) 650 mg Q4H PRN PO 01/13/17 17:15 02/12/17 17:14 Magnesium Hydroxide (Milk Of Magnesia Susp) 30 ml Q6H PRN PO 01/13/17 17:15 02/12/17 17:14 Ondansetron HCl 4 mg 4 mg Q6H PRN IV 01/13/17 17:15 02/12/17 17:14 Sodium Chloride (Nss 1000ml) 1,000 ml @ 125 mls/hr Q8H IV 01/13/17 17:15 02/12/17 17:14 01/14/17 09:18 125 MLS/HR Morphine Sulfate (MoRPHine SULFATE INJ) 1 mg Q4H PRN IV 01/13/17 17:15 01/27/17 17:14 Oxycodone/ Acetaminophen (Percocet 5-325mg Tab) 1 tab Q4H PRN PO 01/13/17 17:15 01/27/17 17:14 01/14/17 08:02 1 TAB Tamsulosin HCl (Flomax Cap) 0.4 mg HS PO 01/13/17 21:00 02/12/17 20:59 01/13/17 22:05 0.4 MG Nicotine (Nicoderm Cq 21MG Patch) 1 patch QAM PRN TD 01/13/17 17:30 02/12/17 17:29 Review of Systems Review of Systems Constitutional: No chills, No fever Eyes: No blurred vision Neurological: No dizzy, No passing out Endocrine: No excessive thirst Gastrointestinal: + see HPI, No nausea, No vomiting Cardiovascular: No chest pain Respiratory: No shortness of breath, No wheezing Skin: No rash Musculoskeletal: No joint pain Blood / Lymphatic: No bleed easily, No bruise easily Ears / Nose / Throat: No hearing loss Psychologic / Mental: No nervous Male : + see HPI Physical Exam Vital Signs: Vital Signs Past 12 Hours Date Time Temp Pulse Resp B/P Pulse Ox O2 Delivery O2 Flow Rate FiO2 01/14/17 07:51 36.7 67 18 126/72 98 Room Air 01/14/17 00:45 Room Air 01/13/17 23:49 36.8 64 16 135/77 99 Room Air Physical Exam: General Appearance: WD/WN, no apparent distress Eyes: bilateral eyes normal inspection ENT: hearing grossly normal Neck: no JVD Respiratory/Chest: lungs clear, normal breath sounds, no respiratory distress, no accessory muscle use Cardiovascular: regular rate, rhythm Gastrointestinal: Abdomen: normal abdomen Extremities: normal range of motion, non-tender, normal inspection, no pedal edema, no calf tenderness Neurologic/Psychiatric: alert, normal mood/affect, oriented x 3 Skin: normal color, warm/dry, no rash Assessment & Plan Assessment & Plan Imaging: CT, KUB, Ultrasound Left ureteral stone KUB reveals has at least one of the previous obstructing stones seen on CT on Tuesday. His pain is controlled with oral pain medications. Discussed options of MET and push fluids and follow up in office versus stent placement. He wishes to avoid stent placement at this time. 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 Plan to follow up with pt in office early next week with repeat KUB- our office will call to set up appt. If hasn't passed stone will set up for out-pt ESWL. Ok to d/c home from urology standpoint. Thanks for the consult.
[2017-01-14 10:18] LABS: BASO % 0.7 %; BASO ABS # 0.06 K/uL (0-0.2); COMPLETE YES; EOS % 3.1 %; HEMATOCRIT 39.6 % (42-52); IG% 0.2 %; LYMPH % 15.3 %; LYMPH ABS # 1.35 K/uL (1.2-3.4); MEAN CELL VOLUME 88.6 fL (80-100); MEAN CORPUSCULAR HGB CONC 33.8 g/dl (32-36); MEAN PLATELET VOLUME 10.3 fL (7.4-10.4); MONO % 11.8 %; NEUT % 68.9 %; PLATELET COUNT 240 K/uL (130-400); RED BLOOD COUNT 4.47 M/uL (4.7-6.1); WHITE BLOOD COUNT 8.85 K/uL (4.8-10.8)
[2017-01-14 10:25] LABS: PARTIAL THROMBOPLASTIN RATIO 1.1; PROTHROMBIN TIME (PATIENT) 11.1 SECONDS (9.0-12.0)
[2017-01-14 10:48] LABS: BUN/CREATININE RATIO 9.5 (10-20); CALCIUM 8.6 mg/dl (8.5-10.1); CREATININE 1.5 mg/dl (0.60-1.40); POTASSIUM 4.2 mmol/L (3.5-5.1)
--- NOTE | 2017-01-14 13:27 | Hospitalist Progress Note ---
Hospitalist Progress Note Date of Service January 14, 2017. (Debbie Sousa PA-C) Subjective Pt evaluation today including: conversation w/ patient, physical exam, chart review, lab review, review of studies Pain: Moderate left LLQ PO Intake: GOod Voiding: no voiding problems The patient was seen and examined this afternoon. He is doing better than yesterday but still reports moderate pain in the LLQ. He is urinating without difficulty, no hematuria. Pt denies nausea or vomiting and was able to eat about 75% of his lunch. This was the first time he's eaten real food since Tuesday, therefore has not had a bowel movement for past 4 days. He is passing gas. Constitutional: No chills, No fever, No sweats Eyes: No diplopia, No problem reported ENT: No dental problems, No trouble swallowing Respiratory: No cough, No shortness of breath, No wheezing Cardiovascular: No chest pain, No palpitations Abdomen: + pain, No constipation, No diarrhea, No nausea, No vomiting Male : No dysuria, No hematuria Neurologic: No numbness/tingling, No weakness Skin: No itch, No rash (Debbie Sousa PA-C) Objective Vital Signs Date Time Temp Pulse Resp B/P Pulse Ox O2 Delivery O2 Flow Rate FiO2 01/14/17 07:55 Room Air 01/14/17 07:51 36.7 67 18 126/72 98 Room Air 01/14/17 00:45 Room Air 01/13/17 23:49 36.8 64 16 135/77 99 Room Air 01/13/17 20:00 36.9 61 16 138/88 97 Room Air 01/13/17 19:15 62 16 147/68 99 Room Air 01/13/17 17:16 58 18 158/87 98 Room Air 01/13/17 15:14 57 18 128/61 99 Room Air 01/13/17 13:30 36.9 75 18 147/93 99 Room Air (Debbie Sousa PA-C) Physical Exam General Appearance: WD/WN, no apparent distress Eyes: PERRL, EOMI ENT: hearing grossly normal, pharynx normal Neck: supple, thyroid normal, no JVD Respiratory/Chest: chest non-tender, lungs clear, no respiratory distress, no accessory muscle use Cardiovascular: regular rate, rhythm, no JVD, no murmur Abdomen: normal bowel sounds, soft, + tenderness (LLQ, no flank tenderness, no CVA tenderness) Extremities: normal range of motion, non-tender, no pedal edema, no calf tenderness Neurologic/Psychiatric: board finisher II-XII nml as tested, alert, oriented x 3 (Debbie Sousa PA-C) Laboratory Results Last 24 Hours Test 01/13/17 13:45 01/13/17 14:00 01/14/17 09:50 Urine Color DK YELLOW Urine Appearance CLEAR Urine pH 6.0 Urine Specific [place] 1.025 Urine Protein 1+ Urine Glucose (UA) NEG Urine Ketones 3+ Urine Occult Blood 3+ Urine Nitrite NEG Urine Bilirubin 1+ Urine Urobilinogen NEG Urine Leukocyte Esterase NEG Urine WBC (Auto) 1-5 /hpf Urine RBC (Auto) >30 /hpf Urine Hyaline Casts (Auto) 1-5 /lpf Urine Epithelial Cells (Auto) 10-20 /lpf Urine Bacteria (Auto) 1+ Urine Mucus PRESENT Urine Yeast (Auto) White Blood Count 11.52 K/uL 8.85 K/uL Red Blood Count 4.72 M/uL 4.47 M/uL Hemoglobin 13.8 g/dL 13.4 g/dL Hematocrit 41.3 % 39.6 % Mean Corpuscular Volume 87.5 fL 88.6 fL Mean Corpuscular Hemoglobin 29.2 pg 30.0 pg Mean Corpuscular Hemoglobin Concent 33.4 g/dl 33.8 g/dl Platelet Count 242 K/uL 240 K/uL Mean Platelet Volume 10.3 fL 10.3 fL Neutrophils (%) (Auto) 73.5 % 68.9 % Lymphocytes (%) (Auto) 13.3 % 15.3 % Monocytes (%) (Auto) 10.7 % 11.8 % Eosinophils (%) (Auto) 1.6 % 3.1 % Basophils (%) (Auto) 0.6 % 0.7 % Neutrophils # (Auto) 8.48 K/uL 6.11 K/uL Lymphocytes # (Auto) 1.53 K/uL 1.35 K/uL Monocytes # (Auto) 1.23 K/uL 1.04 K/uL Eosinophils # (Auto) 0.18 K/uL 0.27 K/uL Basophils # (Auto) 0.07 K/uL 0.06 K/uL RDW Standard Deviation 39.0 fL 40.0 fL RDW Coefficient of Variation 12.1 % 12.4 % Immature Granulocyte % (Auto) 0.3 % 0.2 % Immature Granulocyte # (Auto) 0.03 K/uL 0.02 K/uL Sodium Level 136 mmol/L 141 mmol/L Potassium Level 4.0 mmol/L 4.2 mmol/L Chloride Level 100 mmol/L 107 mmol/L Carbon Dioxide Level 29 mmol/L 25 mmol/L Anion Gap 7.0 mmol/L 9.0 mmol/L Blood Urea Nitrogen 15 mg/dl 14 mg/dl Creatinine 1.80 mg/dl 1.50 mg/dl Est Creatinine Clear Calc Drug Dose 64.3 ml/min 77.2 ml/min Estimated GFR () 55.3 68.9 Estimated GFR (Non- 47.7 59.5 BUN/Creatinine Ratio 8.4 9.5 Random Glucose 95 mg/dl 90 mg/dl Calcium Level 9.4 mg/dl 8.6 mg/dl Prothrombin Time 11.1 SECONDS Prothromb Time International Ratio 1.0 Activated Partial Thromboplast Time 28.5 SECONDS Partial Thromboplastin Ratio 1.1 (Debbie Sousa, KATIE) Assessment and Plan 36 y/o who was admitted on 01/13 with 1 UVJ stone- suspect this is the 5 mm stone and the 3 mm stone has passed. Renal u/s showed mild hydronephrosis Left Nephrolithiasis - KUB reviewed showing 1 UVJ stone - Urology consulted- plan to use fluid and follow up in the office within 1 weeks vs stent placement. 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 improved to 1.5, was 1.8 upon admission, continue to encourage oral hydration - Analgesia with toradol 15 mg Q6H prn, morphine 1 mg Q4H prn, and percocet 5/ 325 Q4H prn Chronic tobacco use - Cessation counseling provided at bedside. He is adimant about trying to quit. Typically smokes 1/2-3/4 pack per day. - Pt has not needed nicotine patch in hospital, but would like a prescription at time of discharge. DVT ppx: Teds, scds, OOB ad sandra CODE STATUS: FULL CODE Disposition: from home, likely discharge within 24 hours. (Debbie Sousa, KAITE) Attending Attestation: Pt seen/examined, chart reviewed, care plan d/w MAYURI Sousa. I agree w/ the gonzalez components of her documentation. Pt still w/ pain, but improved. No nausea/emesis. gen - nad heart - RRR, s1, s2, 2/6 NNEKA LUSB abd - soft, ND, BS+, no HSM, tender left flank A/P: 1. obstructing renal stones, left, at the UVJ - cont flomax, fluids, pain control, conservative Rx. Overall he is improved today from a pain standpoint. 2. acute kidney injury - 2nd to #1 - improved, Cr now 1.5; repeat BMP am. 3. no evidence of complicating UTI. reassess in AM Joseph STEPHENSON MD (Ruel Stephenson MD)
[2017-01-14] MEDS ORDERED: KETOROLAC TROMETHAMINE 15 MG/ML VIAL IV PRN (13:45)
[2017-01-14 15:21] VITALS: BP 132/69; PULSE 62; TEMP 37.3; O2SAT 98
[2017-01-14] MEDS: TAMSULOSIN HCL 0.4 MG CAP PO SCH (21:27)
[2017-01-14 23:25] VITALS: BP 130/65; PULSE 67; TEMP 37; O2SAT 97
[2017-01-15 07:22] LABS: BUN/CREATININE RATIO 8.6 (10-20); CALCIUM 8.8 mg/dl (8.5-10.1); CREATININE 1.4 mg/dl (0.60-1.40); POTASSIUM 4.1 mmol/L (3.5-5.1)
[2017-01-15 08:42] VITALS: BP 149/79; PULSE 67; TEMP 37; O2SAT 97
[2017-01-15] MEDS ORDERED: OXYC-57 PO (08:46)
[2017-01-15] MEDS ORDERED: Nicotine TD (08:46)
[2017-01-15] MEDS ORDERED: FLM4 PO (08:46)
--- NOTE | 2017-01-15 08:56 | Progress Note ---
Subjective Date of Service: January 15, 2017. Subjective Pt evaluation today including: conversation w/ patient, physical exam, chart review, review of inpatient medication list Pain: Denies PO Intake: Citl[place] reg diet Voiding: no voiding problems 36 yo male with L distal ureteral stones. He denies stone passage but has had no recent pain, citlalli reg diet, no f/c/n/v. He is ready for DC home. Past notes reviewed. Problem List Medical Problems: (1) Anemia Status: Acute (2) Renal colic on left side Status: Acute (3) Renal colic on left side Status: Acute Review of Systems Constitutional: No chills, No fever Eyes: No worsening of vision ENT: No hearing loss Respiratory: No shortness of breath, No sputum, No wheezing Cardiac: No chest pain Abdomen: No nausea, No vomiting Male : No incontinence Neurologic: No memory loss, No paralysis Psychiatric: No depression symptoms Endo: No excessive thirst Skin: No color change, No new/changing skin lesions Objective Vital Signs Date Time Temp Pulse Resp B/P Pulse Ox O2 Delivery O2 Flow Rate FiO2 01/15/17 08:42 37.0 67 18 149/79 97 Room Air 01/14/17 23:45 Room Air 01/14/17 23:25 37.0 67 18 130/65 97 Room Air 01/14/17 15:45 Room Air 01/14/17 15:21 37.3 62 18 132/69 98 Room Air Physical Exam General Appearance: WD/WN, no apparent distress ENT: hearing grossly normal Neck: supple, no adenopathy Respiratory/Chest: no respiratory distress, no accessory muscle use Cardiovascular: no JVD Abdomen: non tender, soft Extremities: non-tender Neurologic/Psychiatric: alert, oriented x 3 Skin: normal color Laboratory Results Last 24 Hours Test 01/14/17 09:50 01/15/17 06:25 White Blood Count 8.85 K/uL Red Blood Count 4.47 M/uL Hemoglobin 13.4 g/dL Hematocrit 39.6 % Mean Corpuscular Volume 88.6 fL Mean Corpuscular Hemoglobin 30.0 pg Mean Corpuscular Hemoglobin Concent 33.8 g/dl Platelet Count 240 K/uL Mean Platelet Volume 10.3 fL Neutrophils (%) (Auto) 68.9 % Lymphocytes (%) (Auto) 15.3 % Monocytes (%) (Auto) 11.8 % Eosinophils (%) (Auto) 3.1 % Basophils (%) (Auto) 0.7 % Neutrophils # (Auto) 6.11 K/uL Lymphocytes # (Auto) 1.35 K/uL Monocytes # (Auto) 1.04 K/uL Eosinophils # (Auto) 0.27 K/uL Basophils # (Auto) 0.06 K/uL RDW Standard Deviation 40.0 fL RDW Coefficient of Variation 12.4 % Immature Granulocyte % (Auto) 0.2 % Immature Granulocyte # (Auto) 0.02 K/uL Prothrombin Time 11.1 SECONDS Prothromb Time International Ratio 1.0 Activated Partial Thromboplast Time 28.5 SECONDS Partial Thromboplastin Ratio 1.1 Sodium Level 141 mmol/L 143 mmol/L Potassium Level 4.2 mmol/L 4.1 mmol/L Chloride Level 107 mmol/L 110 mmol/L Carbon Dioxide Level 25 mmol/L 25 mmol/L Anion Gap 9.0 mmol/L 8.0 mmol/L Blood Urea Nitrogen 14 mg/dl 12 mg/dl Creatinine 1.50 mg/dl 1.40 mg/dl Est Creatinine Clear Calc Drug Dose 77.2 ml/min 82.7 ml/min Estimated GFR () 68.9 74.9 Estimated GFR (Non- 59.5 64.6 BUN/Creatinine Ratio 9.5 8.6 Random Glucose 90 mg/dl 100 mg/dl Calcium Level 8.6 mg/dl 8.8 mg/dl Assessment and Plan A/P 36 yo male with L distal ureteral stones, resolved colic. Worrisome signs and symptoms reviewed. Outpatient follow-up in place with our service. Importance of follow-up, worrisome signs and symptoms reviewed. Thank you for allowing us to participate in this patient's acute care, please recall our service PRN new questions or concerns. Discharge planning: home
--- NOTE | 2017-01-15 08:59 | Discharge Instructions ---
Discharge Instructions Date of Service January 15, 2017. Admission Reason for Admission: Renal Colic On Left Side Discharge Discharge Diagnosis / Problem: Left Kidney Stone Discharge Goals Goal(s): Decrease discomfort, Improve function, Increase independence Activity Recommendations Activity Limitations: resume your previous activity . Instructions / Follow-Up Instructions / Follow-Up Left Kidney Stone: - Continue to drink fluids adequately throughout the day. Goal is to keep urine a pale yellow color to monitor for adequate hydration - You will be provided with a prescription for Flomax - you have been getting this medication here -- If you feel dizzy stop this medication - given your profession make sure you do not take this if it gives you symptoms - You will also be provided a prescription for pain medication to use as needed. - You may also use Tylenol as needed for pain but be mindful the prescription we will give you has Tylenol in it as well. -- AVOID NSAID PAIN MEDICATION - these medications include aspirin, ibuprofen , advil, motrin at least until you follow up with urology - Follow-up with urology as established by them with abdominal x-ray completed prior to appointment Tobacco Use: - You will be provided with a prescription for a nicotine patch to use as needed for cravings - do not smoke while wearing this patch Reasons to Return: - Please return if your pain suddenly worsens or you develop a fever/chills Follow-Up: - Keep your appointment with urology for further intervention related to this stone Current Hospital Diet Patient's current hospital diet: Regular Diet Discharge Diet Recommended Diet: Regular Diet Pending Studies Studies pending at discharge: no Medical Emergencies . Who to Call and When: Medical Emergencies: If at any time you feel your situation is an emergency, please call 911 immediately. . Non-Emergent Contact Non-Emergency issues call your: Primary Care Provider Call Non-Emergent contact if: you have a fever, your pain is concerning you, you have any medication questions . . "Provider Documentation" section prepared by Lyndsay Little. Attending Attestation: I agree with these discharge instructions as outlined by MAYURI Little. Ruel Syed MD . Social And Human Services Assistant Recommendations Social And Human Services Assistant Recommendations: Please get KUB xray prior to appt next week. VTE Core Measure Inpt VTE Proph given/why not?: T.E.D. Stockings, SCD's [place] Drug Monitoring Program Search Results: patient reviewed within database, no issues identified Drug Monitoring Findings: A prescription for 5 days provided for [facility] related to this kidney stone was found. Prescription narcotic abuse not found with search.
[2017-01-15 11:03] VITALS: BP 149/79; PULSE 67; TEMP 37; O2SAT 97
--- NOTE | 2017-01-15 15:15 | Discharge Summary ---
Discharge Summary Date of Service January 15, 2017. (Lyndsay Little PA-C) Discharge Summary Admission Date: January 13, 2017 at 17:13 Discharge Date: January 15, 2017 Discharge Disposition: Home Principal Diagnosis: L Obstructing Renal Calculi Problems/Secondary Diagnoses: 1. Tobacco Use Procedures: 1. RENAL ULTRASOUND FINDINGS: Right kidney: 11.9 cm. No hydronephrosis. Normal corticomedullary differentiation and cortical thickness. Left kidney: 11.5 cm. Mild hydronephrosis, unchanged. Increased cortical echogenicity. Normal cortical thickness. Bladder: Decompressed and not well visualized. The ureteral jets are not identified. IMPRESSION: 1. Mild left hydronephrosis, unchanged. 2. Increased cortical echogenicity within the left kidney. This raises the possibility of superimposed pyelonephritis. Recommend correlation with urinalysis. 3. Normal right kidney. 2. KUB FINDINGS: Probable distal left ureteral calculus at the ureterovesical junction. No additional calcifications are identified. Bowel pattern is nonobstructive. IMPRESSION: Single calcification overlying the distal left ureter proximal to the left ureteral vesicle junction. Consultations: 1. Urology (Lyndsay Little PA-C) Problems/Secondary Diagnoses: acute kidney injury 2nd to obstructing renal stones - resolved (admission Cr 1.8 , discharge Cr 1.4) (Ruel Syed MD) Medication Reconciliation New Medications: Oxycodone/Acetaminophen 5MG/325MG (Percocet 5MG/325MG) Tab 1 TAB PO Q4H PRN for Pain for 3 Days, #18 TAB PAIN Tamsulosin HCl (Tamsulosin HCl) 0.4 Mg Cap 0.4 MG PO HS for 14 Days, #14 CAP [Nicotine] () 21 mg TDSY 1 PATCH TD QAM PRN for nicotine withdrawal for 14 Days Discharge Exam Review of Systems: Constitutional: No chills, No fever ENT: No nasal symptoms, No sore throat, No trouble swallowing Respiratory: No cough, No shortness of breath Cardiovascular: No chest pain, No palpitations Abdomen: No constipation, No diarrhea, No nausea, No pain, No vomiting Musculoskeletal: No calf pain, No swelling Genitourinary - Male: No dysuria Neurologic: No vertigo Hematologic / Lymphatic: No abnormal bleeding/bruising Integumentary: No rash Physical Exam: General Appearance: WD/WN, no apparent distress Eyes: sclerae normal ENT: hearing grossly normal Neck: supple, no JVD, trachea midline Respiratory/Chest: lungs clear, normal breath sounds, no respiratory distress, no accessory muscle use Cardiovascular: regular rate, rhythm, no gallop, no murmur Abdomen / GI: normal bowel sounds, non tender, soft, + pertinent finding ( neg CVA tenderness bilat) Extremities: no calf tenderness, no pedal edema Neurologic/Psychiatric: alert, oriented x 3 Skin: normal color, warm/dry (Lyndsay Little, PADiane) Hospital Course ADMISSION: 36 y/o M c/o L flank/abd pain. Pt states he started having L flank pain only on Tuesday. He was seen in the ED and found to have an obstructing renal stone. He was given flomax and d/c'd to home. Since that time, he has not taken much PO. He was having n/v Tuesday and Tuesday, now mostly just no appetite. He has eaten an apple over the last few days. Pain is now his L flank and moving into the L side of his abd. He has also started having burning with urination. He has not noted blood in his urine. Pt denies fever, SOB, chest pain, c/d, LE pain or swelling. ROS as noted above, otherwise neg. Pt has never had pain like this prior. No hx of renal stones. HOSPITAL COURSE: Mr. Charles was admitted for a L ureteral stone with mild hydronephrosis. He was originally seen on 01/[address] ED [address] showing 2 obstructing L stones with imaging during admission only showing 1 stone. Likely passed the small stone but mild hydronephrosis remained. Imaging also concern for pyelonephritis but UCx without growth and no antibiotics were utilized. He is afebrile and without leukocytosis. Urology evaluated patient and plan for outpatient follow-up. Patient would like to avoid stent placement at this time. Upon admission, he had a mild elevation in kidney function which resolved with adequate IV hydration. On discharge, patient is completely pain free but given a 3 day supply of Percocet PRN. He was reviewed in the drug database and no concerns found. He was discharged with Flomax 0.4 mg daily and instructed to continue unless dizziness occurred. He received this medication in hospital without symptoms. He is scheduled for outpatient KUB and follow-up with Urology. He was also given an Rx for nicotine patch for PRN use for tobacco cessation. Total Time Spent: Greater than 30 minutes This includes examination of the patient, discharge planning, medication reconciliation, and communication with other providers. (Lyndsay Little PA-C) Attending Attestation: Pt seen/examined, chart reviewed, care plan d/w MAYURI Little. I agree w/ the gonzalez components of her documentation. 36yo male admitted for acute kidney injury (MICHELLE) and obstructing renal stones on the left. He was treated conservatively with fluids, expulsive therapy (flomax), and pain medications. Seen by urology and outpatient lithotripsy is planned. MICHELLE and pain both resolved while here. Discharge exam - gen - nad heart - RRR, s1, s2, 2/6 systolic murmur LSB lungs - CTA b/l abd - soft, NT, ND, BS+, no flank tenderness b/l Urology follow-up within 5 days for lithotripsy. Advised follow-up with PCP to obtain routine echocardiogram due to murmur but suspect the murmur is functional. Ruel Syed MD (Ruel Syed MD) Discharge Instructions Please refer to the electronic Patient Visit Report (Discharge Instructions) for additional information. (Lyndsay Little PA-C) Additional Copies To Jaycee Loving CRNP; Odilon Goldman MD, Urology
== END 2017-01-15 11:41 | disposition home or self-care (01) | DRG 694 ==
LOC: ENRESERVDT → ENRESERVTM → C.EDB 13:22 → C.MSN 17:13 → EDBEDREQSVC 17:18
PROVIDERS: ADMIT Family Medicine; ATTEND Internal Medicine
DX: N13.2 Hydronephrosis with renal and ureteral calculous obstruction (principal); N17.9 Acute kidney failure, unspecified; F17.200 Nicotine dependence, unspecified, uncomplicated